=== PATIENT | female | born 1985 | race Caucasian/White ===

== ENCOUNTER 2021-05-25 04:17 | Inpatient (IN) | payer BC ==
[2021-05-25] VITALS (385 sets, daily range): BP systolic 90–125; BP diastolic 63–77; PULSE 72–93; TEMP 98.5–98.6; O2SAT 79–98
[~2021-05-25] VITALS: Ht 170.2 cm; Wt 102.8 kg
[2021-05-25 04:39] LABS: BASO # 0.1 K/mm3 (0.0-0.2); BASO % 0.5 % (0.0-2.0); EOS # 0.2 K/mm3 (0.0-0.7); EOS % 0.8 % (0-4.0); GRAN % 85.8 % (42.2-75.2); HEMATOCRIT 48.3 % (37.0-47.0); HEMOGLOBIN 16.6 g/dl (12.5-16.0); LYMPH # 1.2 K/mm3 (1.2-3.4); LYMPH % 5.7 % (20.0-51.0); MEAN CELL VOLUME 89 fl (80.0-100.0); MEAN CORPUSCULAR HEMOGLOBIN 31 pg (27.0-31.0); MEAN CORPUSCULAR HGB CONC 34 g/dl (33.0-37.0); MEAN PLATELET VOLUME 11.1 fl (7.4-10.4); MONO # 1.5 K/mm3 (0.1-0.6); MONO % 6.9 % (1.7-9.3); PLATELET COUNT 285 K/mm3 (130-400); RED BLOOD COUNT 5.44 M/mm3 (4.10-5.30); REDCELL DISTRIBUTION WIDTH-CV 14.2 % (11.5-14.5)
[2021-05-25 04:54] LABS: ALBUMIN 3.5 gm/dL (3.5-5.0); BILIRUBIN,TOTAL 0.8 mg/dL (0.2-1.2); CALCIUM 8.8 mg/dL (8.4-10.2); CREATININE, serum 0.86 mg/dL (0.57-1.11); POTASSIUM 3.7 mmol/L (3.5-4.5)
[2021-05-25 05:04] LABS: ARTERIAL BLD GAS O2 SATURATION 98.7 % (92-100); ARTERIAL BLD GAS TCO2 CT 19.5; ARTERIAL BLOOD GAS BASE EXCESS -4.4 (-2-2); ARTERIAL BLOOD GAS HCO3 18.6 meq/L (22-26); ARTERIAL BLOOD GAS PCO2 29.5 mmHg (35-45); ARTERIAL BLOOD GAS pH 7.42 (7.35-7.45)
[2021-05-25 05:07] LABS: ARTERIAL BLOOD GAS PO2 129.7 mmHg (80-100)
[2021-05-25 05:13] LABS: TROPONIN-I 0.017 ng/mL (0.00-0.033)
--- NOTE | 2021-05-25 09:55 | NUR ---
Arrived to the unit from the ER. Alert and oriented and in no distress. Attached to all monitiors. assistive technology specialist at bedside to perform echo. Call light left within reach.
--- NOTE | 2021-05-25 12:00 | NUR ---
Resting in bed; Alert and oriented and in no distress. Reports feeling like she can't take a "deep breaths" otherwise has no complaints at this time. Discussed receiving antibiotic for pneumonia and will get a picc line for IV administration. Patient agrees with plan of care. Call light left within reach.
[2021-05-25] MEDS ORDERED: ZOLOFT 50MG50 MG PO (15:18)
[2021-05-25] MEDS ORDERED: FLOVENT 44MCG I13 GM IH (15:19)
[2021-05-25] MEDS ORDERED: PROVENTIL0.09 MG/A1 IH (15:19)
[2021-05-25] MEDS ORDERED: ADALAT CC30 MG PO (15:20)
[2021-05-25] MEDS ORDERED: LIALDA 1.2 GM1.2 GM PO (15:22)
--- NOTE | 2021-05-25 16:30 | NUR ---
Called PCP's office to request medical records. Provided with our fax number; awaiting documents.
[2021-05-25 20:26] LABS: COLLECTION METHOD CLEAN CATCH
[2021-05-25 20:32] LABS: PH 6 (5-8); SQUAMOUS EPITHELIAL 0-2 /hpf; URINE APPEARANCE Clear; URINE BACTERIA None Seen /hpf; URINE BILIRUBIN Negative (NEGATIVE); URINE BLOOD Negative (NEGATIVE); URINE COLOR Yellow; URINE GLUCOSE 3+ (NEGATIVE); URINE KETONE Negative (NEGATIVE); URINE LEUKOCYTE ESTERASE Negative (NEGATIVE); URINE NITRATE Negative (NEGATIVE); URINE PROTEIN(semi-quant) Negative (NEGATIVE); URINE RBC 0-2 /hpf; URINE UROBILINOGEN Negative (NEGATIVE); URINE WBC 0-2 /hpf
[2021-05-25 20:47] LABS: TRICYCLIC ANTIDEPRESS URINE NEGATIVE
[2021-05-26] VITALS (310 sets, daily range): BP systolic 101–116; BP diastolic 49–72; PULSE 66–95; TEMP 97.6–98.7; O2SAT 86–100
[2021-05-26 04:21] LABS: HEMATOCRIT 39.4 % (37.0-47.0); MEAN CELL VOLUME 91 fl (80.0-100.0); MEAN CORPUSCULAR HEMOGLOBIN 30 pg (27.0-31.0); MEAN CORPUSCULAR HGB CONC 33 g/dl (33.0-37.0); MEAN PLATELET VOLUME 11.5 fl (7.4-10.4); PLATELET COUNT 230 K/mm3 (130-400); RED BLOOD COUNT 4.35 M/mm3 (4.10-5.30); REDCELL DISTRIBUTION WIDTH-CV 14.2 % (11.5-14.5)
[2021-05-26 04:33] LABS: HEMOGLOBIN 13.1 g/dl (12.5-16.0)
[2021-05-26 04:42] LABS: ALBUMIN 2.8 gm/dL (3.5-5.0); BILIRUBIN,TOTAL 0.6 mg/dL (0.2-1.2); CALCIUM 8.6 mg/dL (8.4-10.2); CREATININE, serum 0.72 mg/dL (0.57-1.11); POTASSIUM 4.1 mmol/L (3.5-4.5)
[2021-05-26 05:32] LABS: BAND 5 % (0-10); BASOPHIL 1 % (0-2); LYMPHOCYTE 7 % (20.0-51.0); NEUTROPHILS 85 % (42.0-75.2); PLATELET ESTIMATE NORMAL (NORMAL)
[2021-05-26 05:34] LABS: HYPOCHROMIA 1+
[2021-05-26 06:04] LABS: ARTERIAL BLD GAS O2 SATURATION 96.7 % (92-100); ARTERIAL BLD GAS TCO2 CT 19.7; ARTERIAL BLOOD GAS BASE EXCESS -5.2 (-2-2); ARTERIAL BLOOD GAS HCO3 18.7 meq/L (22-26); ARTERIAL BLOOD GAS PCO2 31.9 mmHg (35-45); ARTERIAL BLOOD GAS PO2 84.6 mmHg (80-100); ARTERIAL BLOOD GAS pH 7.39 (7.35-7.45)
--- NOTE | 2021-05-26 12:02 | NUR ---
REPORT CALLED TO ANGELLA HOWARD
[2021-05-26] MEDS ORDERED: PRENATAL PLUS PO (12:36)
--- NOTE | 2021-05-26 12:37 | NUR ---
Ingot Stripper offered prayer and support with patient.
[2021-05-26 12:55] LABS: ANA SCREEN with REFLEX Negative (Negative)
--- NOTE | 2021-05-26 13:00 | NUR ---
Patient taken up to room 322 on non rebreather mask. She tolerates this well. Care handed off to ANGELLA Marquez
--- NOTE | 2021-05-26 14:50 | NUR ---
SW met with patient to complete intake while she was in ICU. Patient states that she lives in [place] and is on a trip with her Suman [phone] and 7 month old child. Patient states that she does not utilize any DME and is independent with ADL's. Patient states that her PCP in [place] is Dr. Carmelita Roberto, DPOA-HC is spouse, and plans to return on her trip if possible after hospital stay. Patient request local resources to be able to share wth her family. SW provided documenation up on completion of intake. SW will continue to follow. DC plan: [place]
--- NOTE | 2021-05-26 15:26 | NUR ---
Patient revieved from ICU. Sitting up in chair, alert & oriented. Respiatory therapy removed Airvo & placed patient on high flow O2 at 9 liters. Patient went to the bathroom on room air & saturations were at 84% She tolerated lunch well. Her spouse visited & took home all patient breast milk that was stored in the nursey. Patient has PICC to RUE to INT. Vss. Rahat waite to monitor.
--- NOTE | 2021-05-26 17:10 | NUR ---
Patient wanting to try & take a nap. Only complaint is of dry throat & nostrils. Tyelnol provided. O2 is humidified
--- NOTE | 2021-05-26 18:22 | NUR ---
Patient up to the bathroom, stand by assist. Voiding adequately. Patient ordering dinner. She was thankful to be able to rest & reports the tyelnol did help her throat. Will report off to nightnurse
--- NOTE | 2021-05-26 20:04 | NUR ---
ALERT AND OX4. DENIES SOA, CHEST PAIN OR DIZZY. RT UPPER PICC LINE FLUSHED W GOOD BLOOD RETURN. POC DISCUSSED. PM MEDS WILL BE GIVEN. DENIES GENERAL PAIN. [place] PT SPOUSE BRING UP BELONGINGS. LOVENOX FOR VTE. CALL LIGHT WI REACH. NEEDS MET.
[2021-05-27 04:04] VITALS: BP 113/63; PULSE 75; TEMP 98.5
--- NOTE | 2021-05-27 05:44 | NUR ---
RESTED THROUGH THE NIGHT WIHTOUT INCIDENT. PUMPED BREAST MILK AND TAKEN TO NURSERY [facility]ID[facility]. AM MEDS AND LABS DONE THIS AM. CALL LIGHT WI REACH. NEEDS ARE MET.
[2021-05-27 06:20] LABS: BASO % 0.1 % (0.0-2.0); GRAN # 14.7 K/mm3 (1.4-6.5); GRAN % 87.5 % (42.2-75.2); HEMATOCRIT 40.3 % (37.0-47.0); HEMOGLOBIN 13.3 g/dl (12.5-16.0); LYMPH # 1.1 K/mm3 (1.2-3.4); LYMPH % 6.2 % (20.0-51.0); MEAN CELL VOLUME 92 fl (80.0-100.0); MEAN CORPUSCULAR HEMOGLOBIN 30 pg (27.0-31.0); MEAN CORPUSCULAR HGB CONC 33 g/dl (33.0-37.0); MEAN PLATELET VOLUME 11.7 fl (7.4-10.4); MONO # 0.9 K/mm3 (0.1-0.6); MONO % 5.5 % (1.7-9.3); PLATELET COUNT 247 K/mm3 (130-400); REDCELL DISTRIBUTION WIDTH-CV 14.6 % (11.5-14.5)
[2021-05-27 06:38] LABS: ALBUMIN 2.8 gm/dL (3.5-5.0); BILIRUBIN,TOTAL 0.6 mg/dL (0.2-1.2); CALCIUM 9.1 mg/dL (8.4-10.2); CREATININE, serum 0.67 mg/dL (0.57-1.11); POTASSIUM 4.2 mmol/L (3.5-4.5); TOTAL PROTEIN 5.8 gm/dL (6.2-8.1)
--- NOTE | 2021-05-27 07:00 | NUR ---
Report received from ANGELLA Rogers. PT in chair at side of bed resting, denies needs, will continue to monitor.
[2021-05-27 07:35] VITALS: BP 138/72; PULSE 115; TEMP 97.8
--- NOTE | 2021-05-27 09:16 | NUR ---
Assessment charted. PT in chair resting, up to shower, feeling well, 02 requirements down to 3L NC. Denies pain. Does not feel short of breath unless up moving. Will ocnitnue to monitor.
[2021-05-27 11:45] VITALS: BP 128/74; PULSE 76; TEMP 98
--- NOTE | 2021-05-27 11:53 | NUR ---
Jolie spoke Dr. Pozo about oxygen and he informed Sw that they will do a new test tomorrow 05/28 to see if she will need oxygen to go. Sw to await further recommendations. Possible 3L.
[2021-05-27 16:00] VITALS: BP 127/71; PULSE 94; TEMP 97.9
--- NOTE | 2021-05-27 18:22 | NUR ---
Pt has done well today. up ad eldon in hallways with , 02 reduced to 2L NC. Denies pain or other needs, will give report to nightshift nurse who will resume care.
[2021-05-27 19:35] VITALS: BP 131/67; PULSE 84; TEMP 98.4
--- NOTE | 2021-05-27 21:45 | NUR ---
ALERT AND OX4. DENIES SOA, CHEST PAIN OR DIZZY. UP AMBULATING IN ROOM. SPOUSE HERE FOR VISIT TODAY. PT IS [employer]. ANCIPTATES DC TOMORROW. PLAN OF CARE DISCUSSED. PM MEDS GIVEN. CALL LIGHT WI REACH. NEEDS MET.
[2021-05-28 00:21] VITALS: BP 106/67; PULSE 64; TEMP 97.5
--- NOTE | 2021-05-28 01:16 | NUR ---
Pt reports yeast inf s/s. Burning and itching. Dosed x1 a few days ago, notified Alyson ORTIZ will place order for additional dose.
[2021-05-28 04:14] VITALS: BP 111/68; PULSE 70; TEMP 98
[2021-05-28 05:43] LABS: BASO % 0.1 % (0.0-2.0); EOS # 0.1 K/mm3 (0.0-0.7); EOS % 0.4 % (0-4.0); GRAN # 8.9 K/mm3 (1.4-6.5); GRAN % 73.8 % (42.2-75.2); HEMATOCRIT 41.9 % (37.0-47.0); HEMOGLOBIN 13.5 g/dl (12.5-16.0); LYMPH % 16.4 % (20.0-51.0); MEAN CELL VOLUME 93 fl (80.0-100.0); MEAN CORPUSCULAR HEMOGLOBIN 30 pg (27.0-31.0); MEAN CORPUSCULAR HGB CONC 32 g/dl (33.0-37.0); MEAN PLATELET VOLUME 11.5 fl (7.4-10.4); MONO # 1.1 K/mm3 (0.1-0.6); MONO % 8.7 % (1.7-9.3); PLATELET COUNT 248 K/mm3 (130-400); RED BLOOD COUNT 4.51 M/mm3 (4.10-5.30); REDCELL DISTRIBUTION WIDTH-CV 14.9 % (11.5-14.5)
[2021-05-28 06:00] LABS: ALBUMIN 2.8 gm/dL (3.5-5.0); BILIRUBIN,TOTAL 0.6 mg/dL (0.2-1.2); CALCIUM 8.9 mg/dL (8.4-10.2); CREATININE, serum 0.69 mg/dL (0.57-1.11); POTASSIUM 3.7 mmol/L (3.5-4.5); TOTAL PROTEIN 5.8 gm/dL (6.2-8.1)
[2021-05-28 07:13] VITALS: BP 116/80; PULSE 60; TEMP 98.4
[2021-05-28] MEDS ORDERED: PREDNISONE20 MG PO (07:29)
[2021-05-28] MEDS ORDERED: CEFTIN500 MG PO (07:31)
[2021-05-28] MEDS ORDERED: MONODOX100 PO (07:31)
--- NOTE | 2021-05-28 08:26 | NUR ---
Patient independent in room. She did well with breakfast. She is hopful for discharge home today. She remains on a liter of O2, denies SOB. Patient breast pumping. Will give her privacy.
--- NOTE | 2021-05-28 09:14 | NUR ---
Hospitalist team rounded. Will monitor.
[2021-05-28 11:57] VITALS: BP 118/64; PULSE 79; TEMP 98.5
--- NOTE | 2021-05-28 12:20 | NUR ---
Alma PERALES notified that pt was concerned that insurance had not been notified as yet-they had called. I spoke with Ay- R1 is to notify of admit today. Due to pt being admitted on Friday [facility] [place] had not yet been notified. I told pt that I would be following up with them and sending records as soon as I had a reference number.Pt voiced understanding and all questions were answered.
--- NOTE | 2021-05-28 12:40 | NUR ---
Patient ready for discharge. All discharge paperwork reviewed, she denies questions or concerns. We reviewed medication list. Scripts send with patient. AIV removed, PICC line. Patient spouse taking her home. Matthew made aware of suggestion to pump and dump breast milk
[2021-05-28 19:05] LABS: C-ANCA 83 U/mL (0-99)
[2021-05-29 14:57] LABS: ANGIOTENSIN CONVERTING ENZYME 52 U/L (16 - 85)
== END 2021-05-28 13:00 | disposition home or self-care (01) | DRG 871 ==
LOC: COL.ER 04:17 → ICU 06:52 → SURG 05-26 12:34
PROVIDERS: Emergency Medicine; Internal Medicine Pulmonary Disease; ADMIT Internal Medicine
PROC: 02HV33Z Insertion of Infusion Device into Superior Vena Cava, Percutaneous Approach (ICD-10-PCS; principal; 2021-05-25)
DX: A41.9 Sepsis, unspecified organism (principal); J96.01 Acute respiratory failure with hypoxia; J18.9 Pneumonia, unspecified organism; K51.90 Ulcerative colitis, unspecified, without complications; R65.20 Severe sepsis without septic shock; I10 Essential (primary) hypertension; J45.909 Unspecified asthma, uncomplicated; R00.0 Tachycardia, unspecified; Z20.822 Contact with and (suspected) exposure to COVID-19; R19.7 Diarrhea, unspecified; F32.A Depression, unspecified; E66.9 Obesity, unspecified; Z88.0 Allergy status to penicillin; Z88.5 Allergy status to narcotic agent
CPT/HCPCS: 99232-AI; 99233-AI; 99239; A9284; C1751; J0456; J0692; J0696; J1650; J2920; J2930; J3475; J7030; J7050; J7512; Q9967